=== PATIENT | female | born 2000 | race Caucasian/White ===

== ENCOUNTER 2018-04-26 02:53 | Inpatient (IN) | END 2018-04-30 13:50 | disposition home or self-care (01) | DRG 775 ==

== ENCOUNTER 2018-08-31 04:10 | Emergency (ER) | END 2018-08-31 05:04 | disposition home or self-care (01) ==

== ENCOUNTER 2018-08-31 07:29 | Emergency (ER) | END 2018-08-31 09:17 | disposition home or self-care (01) ==